=== PATIENT | female | born 1995 | race Caucasian/White ===

== ENCOUNTER 2016-11-18 21:07 | Emergency (ER) | payer OTHER ==
[2016-11-18 21:31] VITALS: BP 109/85; PULSE 66; TEMP 98.6; BMI 28.1
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
== END 2016-11-18 22:27 | disposition home or self-care (01) ==
LOC: JERFT 21:07
DX: S13.4XXA Sprain of ligaments of cervical spine, initial encounter (principal); V44.6XXA Car passenger injured in collision with heavy transport vehicle or bus in traffic accident, initial encounter; Y92.488 Other paved roadways as the place of occurrence of the external cause; Y93.89 Activity, other specified; S00.83XA Contusion of other part of head, initial encounter; Y04.2XXA Assault by strike against or bumped into by another person, initial encounter
CPT/HCPCS: 99281-25